=== PATIENT | male | born 1965 | race Caucasian/White ===

== ENCOUNTER 2020-05-22 14:45 | Outpatient (CLI) | payer BC, SELFPAY ==
--- NOTE | 2020-05-22 14:52 | XR_ITS ---
WS: [id number] HAND LEFT TECHNIQUE: 3 views of the left hand CLINICAL INFORMATION: LEFT HAND PAIN COMPARISON: None. FINDINGS: Prior traumatic or postoperative changes involving the first distal phalanx. Metacarpals are normal i n appearance. Comminuted fracture involving the fifth proximal phalanx with intra-articular extension to the MCP joint. Mild displacement measuring 1.2 mm on the lateral view. Buckling and mild angulati on of the proximal shaft. IMPRESSION: Comminuted fractures involving the fifth proximal phalanx with intra-articular extension. Mild dorsal displacement of the proximal fragment measuring 1.2 mm
== END 2020-05-22 14:46 | disposition home or self-care (01) ==
LOC: RADWPI 14:49
DX: S62.617A Displaced fracture of proximal phalanx of left little finger, initial encounter for closed fracture (principal); X58.XXXA Exposure to other specified factors, initial encounter
CPT/HCPCS: 73130

== ENCOUNTER 2021-02-12 17:45 | Inpatient (IN) | payer BC, SELFPAY ==
[2021-02-12] VITALS (7 sets, daily range): BP systolic 100–126; BP diastolic 68–92; PULSE 85–104; RESP 20–23; TEMP 37.3–38.8; O2SAT 91–93; BMI 26.4
--- NOTE | 2021-02-12 18:20 | XRR_ITS ---
PROCEDURE INFORMATION: Exam: XR Chest Exam date and time: 02/12/2021 6:20 PM Age: 55 years old Clinical indication: Cough and fever and shortness of breath; Prior surgery; Surgery type: Open heart; Additional info: Cough, fever, covid + TECHNIQUE: Imaging protocol: XR of the chest. Views: 1 view. COMPARISON: No relevant prior studies available. FINDINGS: Lungs: Suggestion of left basilar opacity possibly with superimposed trace left pleural effusion. Pleural spaces: No pneumothorax. Heart/Mediastinum: Post CABG changes with mild cardiomegaly. Bones/joints: Unremarkable. XR/XR chest 1V portable [id number] IMPRESSION: 1. Suggestion of left basilar opacity which could reflect atelectasis or potentially pneumonia. 2. Post CABG changes with mild cardiomegaly.
--- NOTE | 2021-02-12 18:57 | ECG_ITS ---
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 Measurements Intervals [place] Rate: 95 P: 14 [place]: 136 QRS: 42 QRSD: 91 T: 43 QT: 327 QTc: 412 Interpretive Statements SINUS RHYTHM POSSIBLE RIGHT VENTRICULAR CONDUCTION DELAY [RSR (QR) IN V1/V2] No previous ECG available for comparison Electronically Signed On 02-13-2021 9:25:57 CDT by Daria Marques M.D. [id number]
--- NOTE | 2021-02-12 19:01 | ED_ITS ---
HPI - SOB/Dyspnea General: Chief Complaint: Shortness of Breath/Dyspnea Stated Complaint: COVID +/TROUBLE BREATHING/LOW O2/SENT FROM Time Seen by Provider: 02/12/21 18:57 History of Present Illness: HPI Narrative: This patient is a 55-year-old male who presents to the emergency department plaint of cough congestion. Patient also describes a fever. Patient states he is having chest wall pain with cough today. Feels like he is having a difficult time breathing. Patient states he has coronary artery disease with a bypass 5 years ago and history of hypertension. Will do medical evaluation treat as needed.Patient has not had the Covid vaccine MD elicited complaint: shortness of breath, cough, pain with inspiration and chest pain Onset (ago): day(s) (1) Severity: moderate Associated symptoms: Reports chest pain and fever(s); Deny abdominal pain, extremity pain, lightheadedness, nausea, palpitations or vomiting Review of Systems General: Reports: 10 or more systems reviewed and unremarkable except in HPI and below Const: Reports: fever(s) and fatigue; Denies: chills or body aches Eyes: Denies: change in vision or blurry vision ENMT: Denies: throat pain, hoarseness or mouth pain Card: Reports: chest pain; Denies: palpitations, irregular heart rhythm, edema, swelling of feet/ankles or lightheadedness Resp: Reports: dyspnea and non-productive cough; Denies: productive cough, wheezing or pain on inspiration GI: Denies: abdominal pain, nausea or vomiting : Denies: flank pain, dysuria, urinary frequency, urinary urgency or urinary hesitancy Musc: Denies: neck pain, back pain, extremity pain, extremity swelling, joint pain, joint swelling, joint redness, joint warmth or limited range of motion Skin/Breast: Denies: rash, pruritus, erythema or skin tenderness Neuro: Denies: headache(s), numbness in extremities or weakness in extremities Psych: Denies: anxiety or depression Physical Exam Const: COMMON NORMALS: no acute distress, average body habitus, patient oriented x3, no limitations, healthy appearing, alert and well nourished HENMT: COMMON NORMALS: normocephalic, atraumatic, hearing grossly normal bilaterally, external ears normal, EAC's normal, TM's normal bilaterally, Normal external nose present, Normal nasal mucous membranes and turbinates present, moist oral mucous membranes, oropharynx normal, dentition normal and gingiva normal HEAD & SCALP: normocephalic and atraumatic NOSE: Normal external nose present and Normal nasal mucous membranes and turbinates present EXTERNAL EAR: Yes external ears normal EXTERNAL AUDITORY CANAL: EAC's normal TYMPANIC MEMBRANE: TM's normal bilaterally Neck/C-Spine: COMMON NORMALS: full ROM, no lymphadenopathy, supple, no meningeal signs, no JVD, Thyroid normal and No carotid bruits THYROID: Thyroid normal Chest: COMMONS NORMALS: normal inspection of the chest, normal palpation of entire chest wall, normal inspection of the breasts and normal palpation of the breasts Breast/axilla inspection: Yes normal inspection of the breasts BREAST/AXILLA PALPATION: Yes normal palpation of the breasts Resp: COMMON NORMALS: normal respiratory effort, No retractions, No use of accessory muscles, clear to auscultation bilaterally and percussion normal AUSCULTATION: clear to auscultation bilaterally PERCUSSION: percussion normal Cardio: COMMON NORMALS: no JVD, regular rate, regular rhythm, S1 normal heart sound present, S2 normal heart sound present, No gallops present (Cardio), No clicks present (Cardio), No murmurs present (Cardio), No rub (Cardio) and Peripheral pulses 2+ throughout RATE: regular rate RHYTHM: regular rhythm HEART SOUNDS: S1 normal heart sound present and S2 normal heart sound present PERIPHERAL PULSES: Peripheral pulses 2+ throughout GI: COMMON NORMALS: Normal to inspection, nondistended, normoactive bowel sounds present, Soft to palpation, non-tender, No hepatosplenomegaly present, no masses and no bruits PALPATION: Yes Soft to palpation and Yes No hepatosplenomegaly present : COMMON NORMALS: Yes no CVA tenderness BLADDER/KIDNEY EXAM: Yes no CVA tenderness Back/Pelvis: COMMON NORMALS: no CVA tenderness, thoracic and lumbar spine normal to inspection, no thoracic nor lumbar tenderness, thoraco-lumbar ROM normal and straight leg raise negative bilaterally Extremity: COMMON NORMALS: normal to inspection, full ROM, capillary refill normal, no joint enlargement, no clubbing, cyanosis or edema, no calf tenderness and no pedal edema Neuro: COMMON NORMALS: patient oriented x3 SENSORIUM/ORIENTATION: Yes alert MENINGEAL SIGNS: Yes no meningeal signs Course Reevaluation(s): Reevaluation #1: I did discuss at length with patient. States over the past couple weeks he has had several ticks on him. Tick panel has been ordered patient has been given a dose of doxycycline. Covid swab is still pending. Patient is also appears to be acutely dehydrated. Patient admits has not had much to drink in the past couple days. I did discuss with hospitalist he is agreed admit the patient for observation. And again Covid swab is pending. Time: 22:26 Consultations: Consultation #1: I did discuss at length with . He is agreed admit the patient observation for further IV hydration due to dehydration. He understands patient has tick titers pending was given a dose of doxycycline for concerns of tick fever. Covid swab is pending and Dr. Gomez will follow up for the same. Time: 22:26 Vital Signs: Vital signs: Vital Signs Temperature 102 F H 02/12/21 20:50 Pulse Rate 101 H 02/12/21 20:50 Respiratory Rate 22 H 02/12/21 20:50 Blood Pressure 126/92 02/12/21 20:50 Pulse Oximetry 92 02/12/21 20:50 MDM - SOB/Dyspnea MDM Narrative: Medical decision making narrative: This patient is a 55-year-old male who presents to the emergency department plaint of cough congestion. Patient also describes a fever. Patient states he is having chest wall pain with cough today. Feels like he is having a difficult time breathing. Patient states he has coronary artery disease with a bypass 5 years ago and history of hypertension. Will do medical evaluation treat as needed.Patient has not had the Covid vaccine I did discuss at length with patient. States over the past couple weeks he has had several ticks on him. Tick panel has been ordered patient has been given a dose of doxycycline. Covid swab is still pending. Patient is also appears to be acutely dehydrated. Patient admits has not had much to drink in the past couple days. I did discuss with hospitalist he is agreed admit the patient for observation. And again Covid swab is pending. I did discuss at length with . He is agreed admit the patient observation for further IV hydration due to dehydration. He understands patient has tick titers pending was given a dose of doxycycline for concerns of tick fever. Covid swab is pending and Dr. Gomez will follow up for the same. Lab Data: Labs: Lab Results 02/12/21 02/12/21 02/12/21 Range/Units 19:45 19:45 19:45 WBC 4.2 (4.0-10.0) 10^3/ uL RBC 5.80 H (4.1-5.3) 10^6/u L Hgb 16.6 (11.7-16.6) g/dL Hct 50.4 (42.0-52.0) % MCV 86.9 (80-94) fL MCH 28.6 (28.0-34.0) pg MCHC 32.9 (30.0-36.0) g/dL RDW 12.8 (12.1-15.1) % Plt Count 163 (130-400) 10^3/c mm MPV 9.0 (7.4-10.4) fL Neut % (Auto) 74.0 % Lymph % (Auto) 12.4 % Lyon % (Auto) 12.9 % Eos % (Auto) 0.0 % Baso % (Auto) 0.2 % Neut # (Auto) 3.10 (1.8-7.7) 10^3/u L Lymph # (Auto) 0.5 L (0.8-4.8) 10^3/u L Lyon # (Auto) 0.5 (0.2-0.9) 10^3/u L Eos # (Auto) 0.0 (0.0-0.8) 10^3/u L Baso # (Auto) 0.0 (0.0-0.1) 10^3/u L Nucleated RBC % (a uto) 0 % Nucleated RBCs # 0.0 /100WBC PT 13.60 (12.1-14.9) SECO NDS INR 1.01 (0.8-1.2) APTT 31.4 (23.9-36.7) SECO NDS Fibrinogen 634 H (174-498) mg/dL D-Dimer 0.04 (0-0.59) ug/mIFE U Specimen Type Sample Site ABG pH (7.35-7.45) ABG pCO2 (35-45) mmHg ABG pO2 (80.0-100.0) mmH g ABG HCO3 (22-26) mmol/L ABG O2 Saturation ABG Base Excess (-2.0-2.0) mmol/ L Amauri Test A-a O2 Gradient (5-10) mmHg Hematocrit (42-52) % Hgb O2 Saturation (95-100) % Carboxyhemoglobin (0.4-20.1) %THgb Methemoglobin (0.4-1.5) % Total Hemoglobin (14-18) g/dL Ionized Calcium (1.1-1.4) mmol/L O2 Delivery Device FiO2 % Chairman Emeritus ID Sodium 140 (136-145) mmol/L Potassium 4.5 (3.5-5.1) mmol/L Chloride 101 (98-107) mmol/L Carbon Dioxide 22 (22-29) mmol/L Anion Gap 21.5 H (5-19) BUN 30 H (6-20) mg/dL Creatinine 2.3 H (0.7-1.2) mg/dL GFR Calculation 29.7 L (90-130) mL/min Glucose 115 (65-115) mg/dL Calculated Osmolal ity 297 H (285-295) mOsm/k g Lactic Acid (0.5-2.2) mmol/L Calcium 8.5 (8.5-10.5) mg/dL Ferritin 639 H (30-400) ng/mL Total Bilirubin 0.6 (0.15-1.2) mg/dL AST 23 (0-40) U/L ALT 18 (0-41) U/L Alkaline Phosphata se 83 (40-130) IU/L Creatine Kinase 124 (39-308) U/L Troponin T Baselin e (0-15) ng/L C-Reactive Protein 47.2 H (0.0-4.9) mg/L NT-Pro-B Natriuret Pep 37 (0-125) pg/mL Total Protein 6.4 L (6.6-8.7) g/dL Albumin 4.0 (3.5-5.2) g/dL Globulin 2.4 (1.3-4.6) g/dL Procalcitonin 0.17 (0-0.5) ng/mL 02/12/21 02/12/21 02/12/21 Range/Units 19:45 19:45 19:57 WBC (4.0-10.0) 10^3/ uL RBC (4.1-5.3) 10^6/u L Hgb (11.7-16.6) g/dL Hct (42.0-52.0) % MCV (80-94) fL MCH (28.0-34.0) pg MCHC (30.0-36.0) g/dL RDW (12.1-15.1) % Plt Count (130-400) 10^3/c mm MPV (7.4-10.4) fL Neut % (Auto) % Lymph % (Auto) % Lyon % (Auto) % Eos % (Auto) % Baso % (Auto) % Neut # (Auto) (1.8-7.7) 10^3/u L Lymph # (Auto) (0.8-4.8) 10^3/u L Lyon # (Auto) (0.2-0.9) 10^3/u L Eos # (Auto) (0.0-0.8) 10^3/u L Baso # (Auto) (0.0-0.1) 10^3/u L Nucleated RBC % (a uto) % Nucleated RBCs # /100WBC PT (12.1-14.9) SECO NDS INR (0.8-1.2) APTT (23.9-36.7) SECO NDS Fibrinogen (174-498) mg/dL D-Dimer (0-0.59) ug/mIFE U Specimen Type Arterial Sample Site Brachial, left ABG pH 7.46 H (7.35-7.45) ABG pCO2 31.6 L (35-45) mmHg ABG pO2 63.9 L (80.0-100.0) mmH g ABG HCO3 22.5 (22-26) mmol/L ABG O2 Saturation 93.8 ABG Base Excess -0.2 (-2.0-2.0) mmol/ L Amauri Test N/a A-a O2 Gradient 6.0 (5-10) mmHg Hematocrit 51.7 (42-52) % Hgb O2 Saturation 92.2 L (95-100) % Carboxyhemoglobin 0.9 (0.4-20.1) %THgb Methemoglobin 0.8 (0.4-1.5) % Total Hemoglobin 16.9 (14-18) g/dL Ionized Calcium 1.2 (1.1-1.4) mmol/L O2 Delivery Device Room air FiO2 21.0 % Chairman Emeritus ID Fernandokr Sodium 140.0 (136-145) mmol/L Potassium 4.4 (3.5-5.1) mmol/L Chloride (98-107) mmol/L Carbon Dioxide (22-29) mmol/L Anion Gap (5-19) BUN (6-20) mg/dL Creatinine (0.7-1.2) mg/dL GFR Calculation (90-130) mL/min Glucose 117.0 H (65-115) mg/dL Calculated Osmolal ity (285-295) mOsm/k g Lactic Acid 1.2 (0.5-2.2) mmol/L Calcium (8.5-10.5) mg/dL Ferritin (30-400) ng/mL Total Bilirubin (0.15-1.2) mg/dL AST (0-40) U/L ALT (0-41) U/L Alkaline Phosphata se (40-130) IU/L Creatine Kinase (39-308) U/L Troponin T Baselin e 11 (0-15) ng/L C-Reactive Protein (0.0-4.9) mg/L NT-Pro-B Natriuret Pep (0-125) pg/mL Total Protein (6.6-8.7) g/dL Albumin (3.5-5.2) g/dL Globulin (1.3-4.6) g/dL Procalcitonin (0-0.5) ng/mL Imaging Data^: CXR: Attestation: I personally reviewed and interpreted this imaging study as follows: Radiologist's impression: FINDINGS: Lungs: Suggestion of left basilar opacity possibly with superimposed trace left pleural effusion. Pleural spaces: No pneumothorax. Heart/Mediastinum: Post CABG changes with mild cardiomegaly. Bones/joints: Unremarkable. XR/XR chest 1V portable [id number] IMPRESSION: 1. Suggestion of left basilar opacity which could reflect atelectasis or potentially pneumonia. 2. Post CABG changes with mild cardiomegaly. EKG Data^: EKG 1: Attestation: I personally reviewed and interpreted this EKG as follows: EKG Interpretation Date: 02/12/21 EKG interpretation time: 19:13 Prior EKG tracings: not available for review Interpretation: Sinus rhythm with a right ventricular conduction delay heart rate 95 nonspecific EKG. Discharge Plan Discharge Patient Disposition: Placed in Observation Clinical Impression: Acute dehydration, Fever, Tick bite, Systemic viral illness Coding Level of Care Code ED Brushing Operator for [facility] Fwd Exam Comprehensive
[2021-02-12 19:54] LABS: Basophils % 0.2 %; Hematocrit 50.4 % (42.0-52.0); Hemoglobin 16.6 g/dL (11.7-16.6); Lymphocytes # 0.5 10^3/uL (0.8-4.8); Lymphocytes % 12.4 %; Mean Corpuscular HGB Conc 32.9 g/dL (30.0-36.0); Mean Corpuscular Hemoglobin 28.6 pg (28.0-34.0); Mean Corpuscular Volume 86.9 fL (80-94); Monocytes # 0.5 10^3/uL (0.2-0.9); Monocytes % 12.9 %; Nucleated Red Blood Cells % 0 %; Platelet Count 163 10^3/cmm (130-400); Red Cell Distribution Width 12.8 % (12.1-15.1); White Blood Count 4.2 10^3/uL (4.0-10.0)
[2021-02-12] MEDS: albuterol 8 gm MDI 2 PUFF INHALATION (19:58)
[2021-02-12 20:08] LABS: ABG PCO2 31.6 mmHg (35-45); ABG PH Result 7.46 (7.35-7.45); Arterial Blood Gas Hematocrit 51.7 % (42-52); Base Excess ABG -0.2 mmol/L (-2.0-2.0); Blood Gas Operator Identificat HARKR; Blood Gas Sample Site Brachial, left; Blood Gas Sample Type Arterial; Carboxyhemoglobin 0.9 %THgb (0.4-20.1); HCO3 ABG 22.5 mmol/L (22-26); HGB O2 Sat 92.2 % (95-100); Ionized Calcium Level - ABG 1.2 mmol/L (1.1-1.4); Methemoglobin 0.8 % (0.4-1.5); Oxygen Device ROOM AIR; Oxygen Saturation ABG 93.8; PO2 ABG 63.9 mmHg (80.0-100.0); Potassium Level - ABG 4.4 mmol/L (3.5-5.0); Total Hemoglobin 16.9 g/dL (14-18)
[2021-02-12 20:13] LABS: Lactic Sepsis W/Reflex 1.2 mmol/L (0.5-2.2); Troponin(5th) Baseline 11 ng/L (0-15)
[2021-02-12 20:20] LABS: NT Pro B Type Natriuretic Pept 37 pg/mL (0-125); Procalcitonin 0.17 ng/mL (0-0.5)
[2021-02-12 20:52] LABS: D Dimer 0.04 ug/mIFEU (0-0.59); Fibrinogen 634 mg/dL (174-498); INR 1.01 (0.8-1.2); Partial Thromboplastin Time 31.4 SECONDS (23.9-36.7)
[2021-02-12] MEDS: acetaminophen 325 mg Tablet 650 MG PO (20:54)
[2021-02-12] MEDS: dexamethasone 10 mg/mL INJ IVP (20:54)
--- NOTE | 2021-02-12 20:57 | ECG_ITS ---
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 Measurements Intervals [place] Rate: 97 P: 13 [place]: 136 QRS: 45 QRSD: 102 T: 48 QT: 333 QTc: 423 Interpretive Statements SINUS RHYTHM INCOMPLETE RIGHT BUNDLE BRANCH BLOCK [90+ ms QRS DURATION, TERMINAL R IN V1/V2, 40+ ms S IN I/aVL/V4/V5/V6] Compared to ECG 02/12/2021 19:05:19 Incomplete right bundle-branch block now present Electronically Signed On 02-13-2021 18:37:27 CDT by Chong Britt M.D. [id number]
[2021-02-12 21:11] LABS: Alanine Aminotransferase 18 U/L (0-41); Alkaline Phosphatase 83 IU/L (40-130); Anion Gap 21.5 (5-19); Aspartate Amino Transferase 23 U/L (0-40); Blood Urea Nitrogen 30 mg/dL (6-20); C Reactive Protein 47.2 mg/L (0.0-4.9); Calcium 8.5 mg/dL (8.5-10.5); Carbon Dioxide 22 mmol/L (22-29); Chloride 101 mmol/L (98-107); Creatine Phosphokinase 124 U/L (39-308); Globulin 2.4 g/dL (1.3-4.6); Glomerular Filtration Rate 29.7 mL/min (90-130); Glucose 115 mg/dL (65-115); Osmolality Calculated 297 mOsm/kg (285-295); Potassium 4.5 mmol/L (3.5-5.1); Sodium 140 mmol/L (136-145); Total Bilirubin 0.6 mg/dL (0.15-1.2); Total Protein 6.4 g/dL (6.6-8.7)
[2021-02-12] MEDS: sodium chloride 0.9% 1,000 ML 999 ML IV (21:20)
[2021-02-12 21:50] LABS: Ferritin 639 ng/mL (30-400)
[2021-02-12] MEDS: doxycycline 100 mg Tablet PO (22:39)
[2021-02-12] MEDS: sodium chloride 0.9% 500 ML IV (22:39)
[2021-02-12 23:00] LABS: SARS Covid-2 Antigen Positive (Negative)
--- NOTE | 2021-02-12 23:40 | P.HP_ITS ---
Providers/Chief Complaint Admitting Physician: Eloina Gomez Primary Care Provider: Oniel Giraldo Chief Complaint: COVID +/TROUBLE BREATHING/LOW O2/SENT FROM History of Present Illness Ashkan Matt is a 55-year-old male with past medical history significant for benign prostatic hyperplasia, hypertension, hyperlipidemia, and asthma who presented to the hospital with generalized weakness. this had been progressively worsening for the past week. Associated with fever of up to 101, poor appetite, nausea and loose watery diarrhea. Patient was seen by his primary care earlier at [facility] where he was diagnosed with COVID-19 infection. Also, patient been concerned of possible tick-borne illness due to recent multiple tick bites 3 to 4 days prior. Upon arrival to emergency room his initial laboratory workup showed a WBC of 4.2, hemoglobin is 16.6, hematocrit of 50.4 and a platelet count of 163 sodium 140, potassium 4.5, chloride 101, bicarb 22, BUN 30 and creatinine of 2.3. No prior lab workup to compare. Patient denies any history of renal dysfunction. Additional labs included ferritin of 639, AST 23, ALT 18 and alkaline phosphatase of 83 creatinine phosphokinase of 124 C reactive protein of 47.2. D-dimer negative. Arterial blood gases showed a pH of 7.46, pCO2 of 31.6, PO2 of 63.9 and a bicarb of 22.5. Imaging studies included chest x-ray which showed possible left basilar opacity suspicious for atelectasis versus pneumonia. In emergency room patient was given 1500 cc NS bolus, doxycycline 100 mg IV x1 and dexamethasone 10 mg IV x1. Review of Systems General: Reports: 10 or more systems reviewed and unremarkable except in HPI and below Medications/Allergies Home Medications Medication Instructions Recorded Confirmed Last Taken Type albuterol sulfate 2 puff INHALATION Q4H PRN 02/12/21 02/12/21 02/12/21 History amlodipine 10 mg PO DAILY 02/12/21 02/12/21 02/12/21 History aspirin [Aspir-81] 81 mg PO DAILY 02/12/21 02/12/21 02/12/21 History atorvastatin 40 mg PO DAILY 02/12/21 02/12/21 02/12/21 History budesonide-formoterol [Symbicort] 2 puff INHALATION BID 02/12/21 02/12/21 Unknown History celecoxib [Celebrex] 50 mg PO DAILY PRN 02/12/21 02/12/21 02/12/21 History cyclobenzaprine 5 mg PO BID PRN 02/12/21 02/12/21 Unknown History guaifenesin [Mucinex] 1,200 mg PO BID 02/12/21 02/12/21 02/12/21 History levocetirizine [Xyzal] 5 mg PO DAILY 02/12/21 02/12/21 Unknown History lorazepam 0.5 mg PO BID PRN 02/12/21 02/12/21 Unknown History losartan 100 mg PO DAILY 02/12/21 02/12/21 02/12/21 History montelukast 10 mg PO DAILY 02/12/21 02/12/21 02/12/21 History omeprazole 40 mg PO BID 02/12/21 02/12/21 02/12/21 History spironolactone 25 mg PO DAILY 02/12/21 02/12/21 02/12/21 History tamsulosin 0.4 mg PO Q2D 02/12/21 02/12/21 02/12/21 History triamcinolone acetonide [Nasacort] 1 spray INTRANASAL DAILY 02/12/21 02/12/21 02/12/21 History Allergies Allergy/AdvReac Type Severity Reaction Status Date / Time hydroxyzine Allergy Unknown Verified 02/12/21 19:57 isosorbide Allergy Unknown Verified 02/12/21 19:57 PFSH Acute PFSH: Medical History (Updated 02/13/21 @ 01:37 by Eloina Gomez MD) Asthma BPH (benign prostatic hyperplasia) CAD (coronary artery disease) of artery bypass graft Hypertension Surgical History (Updated 02/13/21 @ 01:36 by Eloina Gomez MD) Hx of CABG Social History (Updated 02/13/21 @ 01:36 by Eloina Gomez MD) Smoking and tobacco status: never smoked Alcohol intake: never Substance/Drug Use: never Vitals/I&O/Wt Last Vital Signs Temp 99.1 F 02/13/21 00:29 Pulse 80 02/13/21 00:29 Resp 20 H 02/13/21 00:29 BP 122/66 02/13/21 00:29 Pulse Ox 93 02/13/21 00:29 Weight last 48 hrs Weight 86.183 kg Physical Exam Narrative: EXAM NARRATIVE: General-alert awake oriented x3 , Acutely ill niall earing HEENT-grossly unremarkable CVS-regular rate rhythm Chest-CTABL Abdomen-soft nontender nondistended Extremities-no edema Data : 02/12/21 19:45 02/12/21 19:45 Micro: Microbiology 02/12/21 19:40 Blood Culture - Preliminary Blood SPECIMEN COLLECTED 02/12/21 19:45 Blood Culture - Preliminary Blood SPECIMEN COLLECTED A&P Assessment and plan (1) COVID-19 virus infection: Status: Acute (2) Acute kidney injury: Status: Acute (3) Asthma: Status: Acute (4) CAD (coronary artery disease) of artery bypass graft: Status: Acute (5) BPH (benign prostatic hyperplasia): Status: Acute (6) Hypertension: Status: Acute Viral Syndrome due to COVID-19 infection Cannot rule out tick borne illness ? tick panel sent Empirically started on Doxycycline 100 mg IV daily 02/13 ? COVID-19ag Positive Decadron 6 mg IV dally No indication for remdesivir at this time Tyelnol PRN for fever Zofran PRN for nausea Cautious fluid hydration Acute kindey failure Creatinine 2.3 NS 1.5L bolus per ER Continue IVf at 75cc/hr Repeat BMP in am Hold losartan and Aldactone Monitor u/o Asthma w/o exacerbation Continue bronchodilatory Symbicort 1 puff BID Supplental o2 as needed Coronary Artery disease hx of CABG Management unchanged from home Benign Prostatic hyperplasia Flomax 0.4 mg PO Daily GERD Omeprazone 40 mg PO BID DVT ppx Heparin 5000 units Q8hr Attestations Medical Necessity Statement*: Anticipate less than 2 midnight stay in hospital for eval and treatment of covid 19 and Jay Time Spent in Patient Care: Greater than 35 minutes Coding Level of Care Code Acute First Breaker Feeder for [facility] Fwd Diagnoses COVID-19 virus infection U07.1 Acute kidney injury N17.9 Asthma J45.909 CAD (coronary artery disease) of artery bypass graft I25.810 BPH (benign prostatic hyperplasia) N40.0 Hypertension I10
[2021-02-13] VITALS (15 sets, daily range): BP systolic 122–172; BP diastolic 66–94; PULSE 80–96; RESP 16–20; TEMP 36.8–37.3; O2SAT 92–98
--- NOTE | 2021-02-13 00:38 | US_ITS ---
WS: [id number] ULTRASOUND RENAL TECHNIQUE: Ultrasound examination of both kidneys. CLINICAL INFORMATION: juvenal COMPARISON: None. FINDINGS: RIGHT: Right kidney is normal in size and appearance. Echogenicity: Normal. Cortical thickness: 1.0 cm; Normal. Hydronephrosis: None. Perinephric fluid: None. Right kidney measures: 12.3 cm x 6.7 cm x 5.3 cm. LEFT: Left kidney is normal in size and appearance. Echogenicity: Normal. Cortical thickness: 1.7 cm; Normal. Hydronephrosis: None. Perinephric fluid: None. Left kidney measures: 12.5 cm x 6.3 cm x 6.6 cm. Normal visualized aorta. Normal bladder US/US renal BI* [id number] IMPRESSION: Normal renal ultrasound
[2021-02-13] MEDS: tamsulosin 0.4 mg Capsule PO (01:28)
[2021-02-13] MEDS: sodium chloride 0.9% 1,000 ML 75 ML IV ×2 (01:28→15:22)
[2021-02-13] MEDS: heparin 5,000 unit/mL INJ 1 mL 5000 UNIT SUBCUT ×3 (01:28→20:13)
[2021-02-13] MEDS: montelukast sodium 10 mg Tablet PO (09:10)
[2021-02-13] MEDS: atorvastatin 40 mg Tablet PO (09:10)
[2021-02-13] MEDS: aspirin 81 mg EC Tablet PO (09:10)
[2021-02-13] MEDS: pantoprazole DR 40 mg Tablet PO ×2 (09:10→20:12)
[2021-02-13] MEDS: albuterol 8 gm MDI 2 PUFF INHALATION (09:28)
[2021-02-13] MEDS: remdesivir 200 MG in sodium chloride 0.9% (100 ml) 100 ML 100 MG IV (12:02)
--- NOTE | 2021-02-13 13:48 | PM.PN ---
Subjective Subjective: Interval history: Ashkan reports he has been coughing quite a bit. He is short of breath with any kind of movement. He is still requiring oxygen. Medications: Reviewed: Yes Vitals/I&O/Wt Last Vital Signs Temp 99.1 F 02/13/21 11:35 Pulse 86 02/13/21 11:35 Resp 16 02/13/21 11:35 BP 172/94 02/13/21 11:35 Pulse Ox 92 02/13/21 11:35 02/12/21 02/13/21 02/13/21 22:59 06:59 14:59 Intake Total 1979 Output Total 0 / 0 1200 / 1200 Balance 1979 -1200 / -1200 Weight last 48 hrs Weight 88.042 kg Weight 86.183 kg Physical Exam Narrative: EXAM NARRATIVE: General exam mild respiratory distress with any movement Neck is supple no lymphadenopathy or thyromegaly Cardiovascular regular rate and rhythm without murmur Lungs coarse breath sounds bilaterally Abdomen is soft nontender positive bowel sounds Extremities no cyanosis clubbing or edema Data : 02/12/21 19:45 02/12/21 19:45 Micro: Microbiology 02/12/21 19:40 Blood Culture - Preliminary Blood SPECIMEN COLLECTED 02/12/21 19:45 Blood Culture - Preliminary Blood SPECIMEN COLLECTED A&P Assessment and plan (1) Pneumonia due to COVID-19 virus: Continue dexamethasone Add remdesivir Combivent every 6 hours Incentive spirometry Status: Acute (2) Acute kidney injury: Hydration Repeat renal function in the morning Hold ARB and Aldactone Avoid renal toxic medication Status: Acute (3) Asthma: No evidence of exacerbation currently Combivent as noted above Continue Symbicort Status: Acute (4) CAD (coronary artery disease) of artery bypass graft: Continue home medications Status: Acute (5) Tick bite: Continue doxycycline that was initiated on admission Status: Acute Additional A&P Information Multiple other medical problems as outlined in past medical history Full code Lovenox for DVT prophylaxis Attestations Medical Necessity Statement*: Requires continued hospitalization for acute kidney injury and COVID-19 pneumonia requiring fluids as well as antivirals Coding Level of Care Code Acute Medical Affairs Specialist for [facility] Fwd Diagnoses Pneumonia due to COVID-19 virus U07.1; J12.82 Acute kidney injury N17.9 Asthma J45.909 CAD (coronary artery disease) of artery bypass graft I25.810 Tick bite W57.XXXA
[2021-02-13 15:10] LABS: Blood Urea Nitrogen 27 mg/dL (6-20); Calcium 8.2 mg/dL (8.5-10.5); Carbon Dioxide 22 mmol/L (22-29); Chloride 103 mmol/L (98-107); Glomerular Filtration Rate 45.1 mL/min (90-130); Glucose 119 mg/dL (65-115); Osmolality Calculated 288 mOsm/kg (285-295); Sodium 136 mmol/L (136-145)
[2021-02-13] MEDS: acetaminophen 325 mg Tablet 650 MG PO (22:28)
[2021-02-14] VITALS (15 sets, daily range): BP systolic 105–134; BP diastolic 66–90; PULSE 73–98; RESP 16–18; TEMP 36.8–37.3; O2SAT 90–100
[2021-02-14] MEDS: heparin 5,000 unit/mL INJ 1 mL 5000 UNIT SUBCUT ×3 (00:48→18:01)
[2021-02-14 05:28] LABS: Hematocrit 40.1 % (42.0-52.0); Hemoglobin 13.2 g/dL (11.7-16.6); Lymphocytes # 0.5 10^3/uL (0.8-4.8); Lymphocytes % 9.3 %; Mean Corpuscular HGB Conc 32.9 g/dL (30.0-36.0); Mean Corpuscular Hemoglobin 28.3 pg (28.0-34.0); Mean Corpuscular Volume 85.9 fL (80-94); Mean Platelet Volume 9.4 fL (7.4-10.4); Monocytes # 0.4 10^3/uL (0.2-0.9); Monocytes % 7.6 %; Neutrophils # 4.47 10^3/uL (1.8-7.7); Neutrophils % 82.9 %; Nucleated Red Blood Cells % 0 %; Platelet Count 162 10^3/cmm (130-400); Red Blood Count 4.67 10^6/uL (4.1-5.3); Red Cell Distribution Width 12.5 % (12.1-15.1); White Blood Count 5.4 10^3/uL (4.0-10.0)
[2021-02-14 05:42] LABS: D Dimer <= 0.27 ug/mIFEU (0-0.59)
[2021-02-14] MEDS: remdesivir 100 MG in sodium chloride 0.9% (100 ml) 100 ML IV (05:46)
[2021-02-14 05:48] LABS: Alanine Aminotransferase 14 U/L (0-41); Albumin Level 3.1 g/dL (3.5-5.2); Alkaline Phosphatase 56 IU/L (40-130); Anion Gap 12.5 (5-19); Aspartate Amino Transferase 19 U/L (0-40); Blood Urea Nitrogen 25 mg/dL (6-20); C Reactive Protein 27.5 mg/L (0.0-4.9); Calcium 8.2 mg/dL (8.5-10.5); Carbon Dioxide 26 mmol/L (22-29); Chloride 106 mmol/L (98-107); Ferritin 509 ng/mL (30-400); Globulin 2.5 g/dL (1.3-4.6); Glomerular Filtration Rate 48.6 mL/min (90-130); Glucose 99 mg/dL (65-115); Osmolality Calculated 294 mOsm/kg (285-295); Potassium 4.5 mmol/L (3.5-5.1); Sodium 140 mmol/L (136-145); Total Bilirubin 0.4 mg/dL (0.15-1.2); Total Protein 5.6 g/dL (6.6-8.7)
[2021-02-14] MEDS: dexamethasone 4 mg/mL INJ 6 MG IVP (09:09)
[2021-02-14] MEDS: amlodipine 10 mg Tablet PO (10:29)
[2021-02-14] MEDS: atorvastatin 40 mg Tablet PO (10:29)
[2021-02-14] MEDS: LORazepam 0.5 mg Tablet PO (10:29)
[2021-02-14] MEDS: pantoprazole DR 40 mg Tablet PO ×2 (10:29→18:02)
[2021-02-14] MEDS: aspirin 81 mg EC Tablet PO (10:29)
[2021-02-14] MEDS: montelukast sodium 10 mg Tablet PO (10:29)
[2021-02-14] MEDS: doxycycline 100 MG in sodium chloride 0.9% (plus) 100 ML IV ×2 (10:30→21:02)
--- NOTE | 2021-02-14 10:40 | PM.PN ---
Subjective Subjective: Interval history: Ashkan reports doing okay. Still coughing quite a bit. Feels like he is better than yesterday. Medications: Reviewed: Yes Vitals/I&O/Wt Last Vital Signs Temp 99.0 F 02/14/21 08:00 Pulse 89 02/14/21 08:00 Resp 18 02/14/21 08:00 BP 105/66 02/14/21 08:00 Pulse Ox 100 02/14/21 08:00 02/13/21 02/14/21 02/14/21 22:59 06:59 14:59 Intake Total 600 / 1700 250 / 250 Output Total 2000 / 3200 200 / 3400 800 / 800 Balance -1400 / -1500 -200 / -1700 -550 / -550 Weight last 48 hrs Weight 88.541 kg Weight 88.042 kg Weight 86.183 kg Physical Exam Narrative: EXAM NARRATIVE: General exam no respiratory distress noted today Neck is supple no lymphadenopathy or thyromegaly Cardiovascular regular rate and rhythm without murmur Lungs coarse breath sounds bilaterally Abdomen is soft nontender positive bowel sounds Extremities no cyanosis clubbing or edema Data : 02/14/21 05:00 02/14/21 05:00 Micro: Microbiology 02/12/21 19:40 Blood Culture - Preliminary Blood NEGATIVE TO DATE 02/12/21 19:45 Blood Culture - Preliminary Blood NEGATIVE TO DATE A&P Assessment and plan (1) Pneumonia due to COVID-19 virus: Continue dexamethasone Continue remdesivir Combivent every 6 hours Incentive spirometry Wean oxygen down and off if possible All inflammatory markers improved Status: Acute (2) Acute kidney injury: Resolving Discontinue IV fluids Hold ARB and Aldactone Avoid renal toxic medication Renal ultrasound was normal Status: Acute (3) Asthma: No evidence of exacerbation currently Combivent as noted above Continue Symbicort Status: Acute (4) CAD (coronary artery disease) of artery bypass graft: Continue home medications Status: Acute (5) Tick bite: Continue doxycycline that was initiated on admission Status: Acute Additional A&P Information Multiple other medical problems as outlined in past medical history Full code Lovenox for DVT prophylaxis Attestations Medical Necessity Statement*: Needs continued hospitalization secondary to COVID-19 pneumonia requiring oxygen, antiviral Coding Level of Care Code Acute [employer] for [facility] Diagnoses Pneumonia due to COVID-19 virus U07.1; J12.82 Acute kidney injury N17.9 Asthma J45.909 CAD (coronary artery disease) of artery bypass graft I25.810 Tick bite W57.XXXA
[2021-02-14 13:53] LABS: Lyme AB Screen <0.90 index
[2021-02-14] MEDS: sodium chloride 0.9% 1,000 ML 30 ML IV (13:57)
[2021-02-15] VITALS (8 sets, daily range): BP systolic 125–160; BP diastolic 78–88; PULSE 70–88; RESP 16–18; TEMP 36.8–36.9; O2SAT 94–98
[2021-02-15] MEDS: heparin 5,000 unit/mL INJ 1 mL 5000 UNIT SUBCUT ×2 (00:33→09:55)
[2021-02-15] MEDS: tamsulosin 0.4 mg Capsule PO (00:33)
[2021-02-15] MEDS: remdesivir 100 MG in sodium chloride 0.9% (100 ml) 100 ML IV (05:23)
[2021-02-15 06:55] LABS: Basophils % 0.4 %; Hematocrit 42.3 % (42.0-52.0); Lymphocytes # 0.4 10^3/uL (0.8-4.8); Lymphocytes % 14.4 %; Mean Corpuscular HGB Conc 33.1 g/dL (30.0-36.0); Mean Corpuscular Hemoglobin 28.6 pg (28.0-34.0); Mean Corpuscular Volume 86.3 fL (80-94); Mean Platelet Volume 9.2 fL (7.4-10.4); Monocytes # 0.4 10^3/uL (0.2-0.9); Monocytes % 12.6 %; Neutrophils # 2.06 10^3/uL (1.8-7.7); Neutrophils % 72.2 %; Nucleated Red Blood Cells % 0 %; Platelet Count 176 10^3/cmm (130-400); Red Cell Distribution Width 12.5 % (12.1-15.1); White Blood Count 2.9 10^3/uL (4.0-10.0)
[2021-02-15 07:26] LABS: Blood Urea Nitrogen 26 mg/dL (6-20); Calcium 8.9 mg/dL (8.5-10.5); Carbon Dioxide 24 mmol/L (22-29); Chloride 103 mmol/L (98-107); Glomerular Filtration Rate 69.5 mL/min (90-130); Glucose 110 mg/dL (65-115); Magnesium 1.9 mg/dL (1.7-2.3); Osmolality Calculated 293 mOsm/kg (285-295); Sodium 139 mmol/L (136-145)
[2021-02-15 07:28] LABS: Anion Gap 16.3 (5-19); Potassium 4.3 mmol/L (3.5-5.1)
[2021-02-15] MEDS: dexamethasone 4 mg/mL INJ 6 MG IVP (09:55)
[2021-02-15] MEDS: amlodipine 10 mg Tablet PO (09:56)
[2021-02-15] MEDS: montelukast sodium 10 mg Tablet PO (09:56)
[2021-02-15] MEDS: pantoprazole DR 40 mg Tablet PO (09:56)
[2021-02-15] MEDS: doxycycline 100 MG in sodium chloride 0.9% (plus) 100 ML IV (09:56)
[2021-02-15] MEDS: aspirin 81 mg EC Tablet PO (09:56)
[2021-02-15] MEDS: atorvastatin 40 mg Tablet PO (09:56)
--- NOTE | 2021-02-15 10:28 | PM.DCS ---
Discharge Providers Date of Admission: 02/13/21 13:53 Date of Discharge: February 15, 2021 Attending Provider at Admission: Eloina Gomez Attending Provider at Discharge: Curt Goncalves MD Primary Care Provider: Oniel Giraldo Diagnoses at Discharge Discharge Diagnosis (1) Pneumonia due to COVID-19 virus: Status: Acute (2) Acute kidney injury: Status: Acute (3) Asthma: Status: Acute (4) CAD (coronary artery disease) of artery bypass graft: Status: Acute (5) Tick bite: Status: Acute Reason for Visit Reason for Visit: COVID +/TROUBLE BREATHING/LOW O2/SENT FROM Hospital Course Hospital Course Ashkan is a 55-year-old white male who presented to the hospital with shortness of breath and diagnosed with COVID-19 pneumonia. He was placed on dexamethasone, and remdesivir. He also had significant acute kidney injury and was taken off of his angiotensin receptor rekha and Aldactone. All renal toxic medication was avoided. With the above treatment the oxygen that he required initially was eventually able to be tapered off on February 15 and it was thought he could be discharged home. He will have a home O2 evaluation prior to discharge. He will finish up 2 more days of dexamethasone, 7 days of doxycycline(history of tick bite and tick panel was sent but pending). He will need telehealth follow-up in 4 to 7 days. He will need a BMP on follow-up to recheck renal function and consider whether Aldactone and ARB should be reinitiated. He will continue to quarantine as instructed by the health department, at least until Thursday. Renal ultrasound was also performed during his hospital stay which was normal. Physical Exam Narrative: EXAM NARRATIVE: General exam is no apparent distress Neck is supple no lymphadenopathy or thyromegaly Cardiovascular regular rate and rhythm without murmur Lungs clear Abdomen is soft with positive bowel sounds Extremities no cyanosis clubbing or edema Discharge Data Data Completed and Pending: Completed Studies During Hospitalization Category Date Time Status XR chest 1V naveen ble [id number] Stat Exams 02/12/21 18:20 Completed US renal BI* [id number] Routine Ultrasound 02/13/21 00:38 Completed Pending at discharge Category Date Time Status Blood Culture Sta t Lab 02/12/21 19:40 Results Complete Blood Co unt w/Auto AM LABS Lab 02/16/21 04:00 Ordered Magnesium AM LABS Lab 02/16/21 04:00 Ordered Tick Panel Stat Lab 02/12/21 22:46 Results Labs from last 24 hours 02/15/21 02/15/21 02/12/21 06:35 06:35 22:46 WBC 2.9 L RBC 4.90 Hgb 14.0 Hct 42.3 MCV 86.3 MCH 28.6 MCHC 33.1 RDW 12.5 Plt Count 176 MPV 9.2 Neut % (Auto) 72.2 Lymph % (Auto) 14.4 [place] % (Auto) 12.6 Eos % (Auto) 0.0 Baso % (Auto) 0.4 Neut # (Auto) 2.06 Lymph # (Auto) 0.4 L [place] # (Auto) 0.4 Eos # (Auto) 0.0 Baso # (Auto) 0.0 Nucleated RBC % (a uto) 0 Nucleated RBCs # 0.0 Sodium 139 Potassium 4.3 Chloride 103 Carbon Dioxide 24 Anion Gap 16.3 BUN 26 H Creatinine 1.1 GFR Calculation 69.5 L Glucose 110 Calculated Osmolal ity 293 Calcium 8.9 Magnesium 1.9 [place] Ab (Western B lot) <0.90 Vitals: Last Vital Signs Temp 98.4 F 02/15/21 07:47 Pulse 84 02/15/21 07:55 Resp 18 02/15/21 07:47 BP 154/88 02/15/21 07:47 Pulse Ox 95 02/15/21 07:47 Discharge Plan Discharge Patient Disposition: Home Condition: Stable Prescriptions: New amlodipine 10 mg Tablet 10 mg PO DAILY Qty: 30 RF: 0 dexamethasone 6 mg tablet 6 mg PO Q24H Qty: 2 RF: 0 doxycycline monohydrate 100 mg capsule 100 mg PO BID 7 Days Qty: 14 RF: 0 Continued atorvastatin 40 mg tablet 40 mg PO DAILY RF: 0 omeprazole 40 mg capsule,delayed release(DR/EC) 40 mg PO BID RF: 0 Aspir-81 81 mg Tablet,Delayed Release (Dr/Ec) 81 mg PO DAILY RF: 0 lorazepam 0.5 mg tablet 0.5 mg PO BID PRN (Reason: UNKNOWN) RF: 0 tamsulosin 0.4 mg capsule 0.4 mg PO Q2D RF: 0 Nasacort 55 mcg Aerosol,[place] 1 spray INTRANASAL DAILY RF: 0 montelukast 10 mg Tablet 10 mg PO DAILY RF: 0 albuterol sulfate 90 mcg/actuation HFA aerosol inhaler 2 puff INHALATION Q4H PRN (Reason: Shortness Of Breath) RF: 0 cyclobenzaprine 5 mg tablet 5 mg PO BID PRN (Reason: MUSCLE SPASMS) RF: 0 Symbicort 160-4.5 mcg/actuation HFA aerosol inhaler 2 puff INHALATION BID RF: 0 Xyzal 5 mg Tablet 5 mg PO DAILY RF: 0 Mucinex 1,200 mg Tablet Extended Release 12hr 1,200 mg PO BID RF: 0 Discontinued amlodipine 5 mg tablet 10 mg PO DAILY RF: 0 spironolactone 25 mg tablet 25 mg PO DAILY RF: 0 losartan 100 mg tablet 100 mg PO DAILY RF: 0 Celebrex 50 mg capsule 50 mg PO DAILY PRN (Reason: UNKNOWN) RF: 0 Discharge Orders: Discharge Order (Routine); Ordered 02/15/21 Ordered By: Curt Goncalves Referrals: Oniel Giraldo [Primary Care Provider] - 4-7 days (Visit by telehealth BMP in 1 week, follow-up renal dysfunction) Discharge Diet: Cardiac Discharge Activity: Increase activity as tolerated Patient Instructions: Opioid Safety Activity Restrictions/Additional Instructions: Avoid all anti-inflammatories. Medication as prescribed Follow-up with your primary care by telehealth in 4 to 7 days. Note that your Aldactone and losartan are discontinued. Your primary care provider will decide when these can be reinitiated. Discharge Attestations Time Spent in Discharge Care*: greater than 30 min Quality Metrics Clinical Quality Measures During this hospital stay, did patient experience: None Coding Level of Care Code Acute g [facility] note Diagnoses Pneumonia due to COVID-19 virus U07.1; J12.82 Acute kidney injury N17.9 Asthma J45.909 CAD (coronary artery disease) of artery bypass graft I25.810 Tick bite W57.XXXA
[2021-02-18 17:38] LABS: E. Chaffeensis AB IGG <1:64; E. Chaffeensis AB IGM <1:20
[2021-02-20 17:23] LABS: RMSF IGG NOT DETECTED; RMSF IGM NOT DETECTED
== END 2021-02-15 13:55 | disposition home or self-care (01) | DRG 177 ==
LOC: ER 22:15 → MEDSURG 23:16
PROVIDERS: Nurse Practitioner Family; Admitting Provider Hospitalist; Emergency Provider Emergency Medicine; PCP Clinical Nurse Specialist Adult Health; Visit Provider Internal Medicine
DX: U07.1 COVID-19 (principal); J12.82 Pneumonia due to coronavirus disease 2019; N17.9 Acute kidney failure, unspecified; N40.0 Benign prostatic hyperplasia without lower urinary tract symptoms; I10 Essential (primary) hypertension; E78.5 Hyperlipidemia, unspecified; J45.909 Unspecified asthma, uncomplicated; I25.10 Atherosclerotic heart disease of native coronary artery without angina pectoris; Z95.1 Presence of aortocoronary bypass graft; K21.9 Gastro-esophageal reflux disease without esophagitis; W57.XXXA Bitten or stung by nonvenomous insect and other nonvenomous arthropods, initial encounter; Z79.82 Long term (current) use of aspirin; Z79.51 Long term (current) use of inhaled steroids
CPT/HCPCS: 36415; 36600; 71045; 76770; 80048; 80051; 80053; 82330; 82550; 82728; 82805; 83605; 83735; 83880; 84145; 84484; 85025; 85378; 85384; 85610; 85730; 86140; 86618; 86666; 86757; 87040; 87426; 93005; 94640; 96372; G0378; J1100; J1644; J3490; J3535; J7030; J7040

== ENCOUNTER → 2022-03-10 08:31 | Outpatient (BNVA) | payer BC, SELFPAY | PROVIDERS: PCP Clinical Nurse Specialist Adult Health; Visit Provider Clinical Nurse Specialist Adult Health | DX: I10 Essential (primary) hypertension (principal); E78.5 Hyperlipidemia, unspecified | CPT/HCPCS: 80053; 80061; 85025 ==

== ENCOUNTER → 2022-05-29 08:08 | Outpatient (BNVA) | payer BC, SELFPAY | PROVIDERS: PCP Clinical Nurse Specialist Adult Health; Visit Provider Clinical Nurse Specialist Adult Health | DX: E78.5 Hyperlipidemia, unspecified (principal); I10 Essential (primary) hypertension; L98.9 Disorder of the skin and subcutaneous tissue, unspecified; E78.2 Mixed hyperlipidemia | CPT/HCPCS: 80053; 80061; 85025; 88304 ==

== ENCOUNTER → 2022-09-01 08:47 | Outpatient (BNVA) | payer BC, SELFPAY | PROVIDERS: PCP Clinical Nurse Specialist Adult Health; Visit Provider Clinical Nurse Specialist Adult Health | DX: I10 Essential (primary) hypertension (principal); E78.5 Hyperlipidemia, unspecified; J01.00 Acute maxillary sinusitis, unspecified; F41.1 Generalized anxiety disorder; L57.0 Actinic keratosis | CPT/HCPCS: 80053 ==

== ENCOUNTER → 2022-12-01 09:21 | Outpatient (BNVA) | payer BC, SELFPAY | PROVIDERS: PCP Clinical Nurse Specialist Adult Health; Visit Provider Clinical Nurse Specialist Adult Health | DX: I10 Essential (primary) hypertension (principal); I25.810 Atherosclerosis of coronary artery bypass graft(s) without angina pectoris; E78.2 Mixed hyperlipidemia; E78.5 Hyperlipidemia, unspecified; F41.1 Generalized anxiety disorder; K21.9 Gastro-esophageal reflux disease without esophagitis | CPT/HCPCS: 80053; 80061; 85025 ==

== ENCOUNTER → 2023-06-03 07:32 | Outpatient (BNVA) | payer BC, SELFPAY | PROVIDERS: PCP Clinical Nurse Specialist Adult Health; Visit Provider Clinical Nurse Specialist Adult Health | DX: N40.0 Benign prostatic hyperplasia without lower urinary tract symptoms (principal); E78.2 Mixed hyperlipidemia; I10 Essential (primary) hypertension; G25.81 Restless legs syndrome; R30.0 Dysuria; I25.810 Atherosclerosis of coronary artery bypass graft(s) without angina pectoris | CPT/HCPCS: 80053; 80061; 81000; 84153; 85025; 87086 ==

== ENCOUNTER → 2023-09-03 07:36 | Outpatient (BNVA) | payer BC, SELFPAY | PROVIDERS: PCP Clinical Nurse Specialist Adult Health; Visit Provider Clinical Nurse Specialist Adult Health | DX: E78.2 Mixed hyperlipidemia (principal); I10 Essential (primary) hypertension; I25.810 Atherosclerosis of coronary artery bypass graft(s) without angina pectoris | CPT/HCPCS: 80053; 80061; 85025 ==

== ENCOUNTER → 2023-10-19 08:02 | Outpatient (BNVA) | payer BC, SELFPAY | PROVIDERS: PCP Clinical Nurse Specialist Adult Health; Visit Provider Clinical Nurse Specialist Adult Health | DX: I25.810 Atherosclerosis of coronary artery bypass graft(s) without angina pectoris (principal) | CPT/HCPCS: 83036 ==

== ENCOUNTER → 2024-01-18 08:00 | Outpatient (BNVA) | payer BC, SELFPAY | PROVIDERS: PCP Clinical Nurse Specialist Adult Health; Visit Provider Clinical Nurse Specialist Adult Health | DX: E78.2 Mixed hyperlipidemia (principal); N18.2 Chronic kidney disease, stage 2 (mild); Z00.01 Encounter for general adult medical examination with abnormal findings | CPT/HCPCS: 80053; 80061 ==

== ENCOUNTER 2024-11-18 14:05 | Outpatient (CLI) | payer OTHER, SELFPAY ==
--- NOTE | 2024-11-18 14:18 | XR_ITS ---
WS: [id number] Exam: XR cervical spine 3V* [id number] Date/Time of Exam: 11/18/2024 2:27 PM Reason For Exam: M54.12 - Radiculopathy, cervical region No fracture noted. Degenerative disc change and spondylosis from C4-C7. Facet DJD at all levels. There is straightening and slight reversal of the normal cervical C curve. Normal paraspinal soft tissues. The dens is intact. XR/XR cervical spine 3V* [id number] IMPRESSION: 1. Degenerative changes. 2. Straightening of the C-spine as noted above.
== END 2024-11-18 14:06 | disposition home or self-care (01) ==
PROVIDERS: PCP Clinical Nurse Specialist Adult Health; Visit Provider Clinical Nurse Specialist Adult Health
DX: M54.12 Radiculopathy, cervical region (principal); M47.892 Other spondylosis, cervical region; M50.321 Other cervical disc degeneration at C4-C5 level; M50.322 Other cervical disc degeneration at C5-C6 level; M50.323 Other cervical disc degeneration at C6-C7 level; R93.7 Abnormal findings on diagnostic imaging of other parts of musculoskeletal system
CPT/HCPCS: 72040

== ENCOUNTER 2024-11-30 12:42 | Outpatient (CLI) | payer BC, SELFPAY ==
--- NOTE | 2024-11-30 12:47 | MR_ITS ---
WS: [id number] MRI CERVICAL SPINE NONCONTRAST HISTORY: SPONDYLOSIS W/O MYELOPATHY OR RADICULOPATHY, RIGHT hand numbness. COMPARISON: Radiograph 11/18/2024 Technique: Multiplanar, multisequence noncontrast imaging of the cervical spine. Straightening and reversal of the normal cervical lordosis. Reversal of the curvature centered at C4-5. Disc spaces are mildly narrowed and desiccated, most significant at C4-5. Signal within the cervical cord is normal. Visualized posterior fossa is unremarkable. Craniocervical junction, C1 and C2 relationship, odontoid process and soft tissues are normal. Significant motion artifacts at multiple levels on the axial imaging. C2-C3: Normal. C3-C4: Small foraminal osteophytes. C4-C5: Annular disc bulge with a central disc protrusion. Effacement of ventral CSF. There is mild central and foraminal stenosis. The extent of stenosis is difficult to determine with this amount of motion. There is mild displacement of the ventral cervical cord. C5-C6: Mild annular disc bulging. Severe motion artifact. Mild osteophytic ridging. Bilateral disc osteophytes in the foramen. There is probably at least mild if not moderate stenosis and mild foraminal stenosis. C6-C7: Diffuse annular disc bulging with effacement of ventral CSF. Bilateral foraminal disc osteophytes. Moderate central and at least moderate foraminal stenosis. C7-T1: Small central disc protrusion. Paraspinal soft tissue are normal. MR/MR cervical spin wo con* [id number] IMPRESSION: 1. Straightening and reversal the normal cervical lordosis centered at C4-5. 2. There is disc osteophyte encroachment upon the cervical cord at C4-5, C5-6 and C6-7. 3. Central and foraminal stenosis due to disc and osteophyte disease from C4-5 through C6-7. The exact quantification of stenosis is difficult as there is si gnificant motion artifact on the axial imaging. Disc osteophyte contacts the ve ntral cord. There is at least moderate central and foraminal stenosis at C6-7. 4. If surgery is contemplated in this patient there would be benefit to repeat ing the axial imaging to better clarify the extent of central and foraminal charlie nosis.
== END 2024-11-30 12:43 | disposition home or self-care (01) ==
LOC: RAD 12:44
PROVIDERS: PCP Clinical Nurse Specialist Adult Health; Visit Provider Clinical Nurse Specialist Adult Health
DX: M47.812 Spondylosis without myelopathy or radiculopathy, cervical region (principal); M25.78 Osteophyte, vertebrae; M48.02 Spinal stenosis, cervical region; R93.7 Abnormal findings on diagnostic imaging of other parts of musculoskeletal system; M50.321 Other cervical disc degeneration at C4-C5 level; M50.221 Other cervical disc displacement at C4-C5 level; M50.322 Other cervical disc degeneration at C5-C6 level; M50.323 Other cervical disc degeneration at C6-C7 level; M50.33 Other cervical disc degeneration, cervicothoracic region
CPT/HCPCS: 72141

== ENCOUNTER 2024-12-22 14:46 | Outpatient (RCR) | payer BC, SELFPAY | END 2024-12-24 23:59 | disposition home or self-care (01) | LOC: SPT 14:46 | PROVIDERS: Visit Provider Clinical Nurse Specialist Adult Health | DX: M54.12 Radiculopathy, cervical region (principal) | CPT/HCPCS: 97161 ==

== ENCOUNTER 2024-12-25 05:00 | Outpatient (RCR) | payer BC, SELFPAY | END 2025-01-23 23:59 | disposition home or self-care (01) | LOC: SPT 05:00 | PROVIDERS: Visit Provider Clinical Nurse Specialist Adult Health | DX: M54.12 Radiculopathy, cervical region (principal) | CPT/HCPCS: 97110; 97140 ==

== ENCOUNTER 2025-01-24 06:30 | Outpatient (RCR) | payer BC, SELFPAY | END 2025-02-10 10:02 | disposition home or self-care (01) | LOC: SPT 06:30 | PROVIDERS: PCP Clinical Nurse Specialist Adult Health; Visit Provider Clinical Nurse Specialist Adult Health | DX: M54.12 Radiculopathy, cervical region (principal) | CPT/HCPCS: 97110; 97140 ==

== ENCOUNTER → 2025-02-09 16:11 | Outpatient (BNVA) | payer BC, SELFPAY | PROVIDERS: PCP Clinical Nurse Specialist Adult Health; Visit Provider Clinical Nurse Specialist Adult Health | DX: N18.9 Chronic kidney disease, unspecified (principal); R73.03 Prediabetes; I10 Essential (primary) hypertension; N40.1 Benign prostatic hyperplasia with lower urinary tract symptoms; R39.11 Hesitancy of micturition | CPT/HCPCS: 80053; 80061; 82728; 83036; 83540; 84153; 85025 ==